=== PATIENT | male | born 1955 | race Caucasian/White ===

== ENCOUNTER 2016-06-07 14:41 | Inpatient (IN) | payer MEDICARE ==
[~2016-06-07] VITALS: Ht 180.3 cm; Wt 71.0 kg
[2016-06-07 14:43] VITALS: BP 147/84; PULSE 110; RESP 20; TEMP 98.1; O2SAT 100
[2016-06-07 14:52] VITALS: O2SAT 98
[2016-06-07] MEDS ORDERED: SODIUM CHLOR 0.9% 1000 ML INJ 1,000 ML IV SCH ×2 (14:57→16:28)
[2016-06-07] MEDS ORDERED: MORPHINE SULFATE 4 MG/ML INJ IV PUSH ONE ×2 (15:00→19:15)
[2016-06-07] MEDS ORDERED: ASPIRIN 325 MG TAB PO ONE (15:00)
[2016-06-07] MEDS ORDERED: ABAC300T PO (15:04)
[2016-06-07] MEDS ORDERED: LAMI1TAB6 PO (15:04)
[2016-06-07] MEDS ORDERED: DOLU1TAB PO (15:04)
[2016-06-07] MEDS ORDERED: ATOR20TA15 PO (15:04)
--- NOTE | 2016-06-07 15:10 | RADRPT ---
EXAM DATE/TIME: 06/07/2016 15:02 [facility] COMPARISON: No previous studies available for comparison. INDICATIONS : Chest pain that started last night. MEDICAL HISTORY : Hypercholesterolemia. Deep venous thrombosis. SURGICAL HISTORY : None. ENCOUNTER: Initial ACUITY: 2 days PAIN SCORE: 10/10 LOCATION: Bilateral chest FINDINGS: A single view of the chest demonstrates the lungs to be symmetrically aerated with a patchy alveolar density in the right medial base obscuring the right heart border consistent with right middle lobe p rocess CONCLUSION: Right middle lobe patchy alveolar airspace disease obscuring the right heart border. Most likely repr esents infiltrate. Followup chest x-ray after appropriate medical treatment is recommended Alexis Moreno MD on June 07, 2016 at 15:07 Board Certified Radiologist. This report was verified electronically.
[2016-06-07 15:30] LABS: AUTOMATED NEUTROPHIL # 15.8 TH/MM3 (1.8-7.7); BASOPHIL # 0.1 TH/MM3 (0-0.2); BASOPHIL % 0.4 % (0.0-2.0); EOSINOPHIL % 0.1 % (0.0-4.0); HEMATOCRIT 33.1 % (39.0-51.0); HEMO FLAGS AUTO DIFF; MEAN CELL VOLUME 88.2 FL (80.0-100.0); MEAN CORPUSCULAR HEMOGLOBIN 30.7 PG (27.0-34.0); MEAN CORPUSCULAR HGB CONC 34.8 % (32.0-36.0); MONO % 11.5 % (0.0-8.0); PLATELET COUNT 534 TH/MM3 (150-450); RED BLOOD COUNT 3.75 MIL/MM3 (4.50-5.90); RED CELL DISTRIBUTION WIDTH 14.8 % (11.6-17.2); WHITE BLOOD COUNT 21.4 TH/MM3 (4.0-11.0)
[2016-06-07 15:58] LABS: APTT (PATIENT) 27.4 SEC (24.3-30.1); PROTHROMBIN TIME - PATIENT 11.4 SEC (9.8-11.6)
[2016-06-07 15:59] LABS: KERATOCYTES OCC (NORMAL); PLATELET ESTIMATE SMEAR HIGH (NORMAL); PLATELET MORPHOLOGY NORMAL (NORMAL); SCAN/DIFF AUTO DIFF CONFIRMED
[2016-06-07 16:16] LABS: ANION GAP 10 MEQ/L (5-15); BICARBONATE 23.2 MEQ/L (21.0-32.0); BLOOD UREA NITROGEN 21 MG/DL (7-18); CHLORIDE 99 MEQ/L (98-107); CREATINE KINASE 196 U/L (39-308); GLOMERULAR FILTRATION RATE 26 ML/MIN (>89); MAGNESIUM 2.4 MG/DL (1.5-2.5); SODIUM (NA) 132 MEQ/L (136-145)
[2016-06-07 16:17] LABS: POTASSIUM 5.7 MEQ/L (3.5-5.1)
[2016-06-07 16:29] LABS: CKMB LESS THAN 0.5 NG/ML (0.5-3.6)
[2016-06-07] MEDS ORDERED: LEVOFLOXACIN 500 MG PREMIX INJ 100 ML IV ONE (16:30)
--- NOTE | 2016-06-07 16:59 | PD ---
HPI Chief Complaint: Chest Pain Time Seen by Provider: 16:53 Travel History International Travel<30 days: No Contact w/Intl Traveler<30days: No Traveled to known affect area: No History of Present Illness HPI 60-year-old male that presents to the ED for evaluation of right-sided chest pain to his having for the past 2 hours. Per patient he also feels nausea. Per patient the pain is severe and is 8 out of 10. He is never had anything like this before. He denies any history of heart disease. He does have a history of HIV and takes medications for it but his medications had to be changed recently by his doctor because he was going into kidney failure and they 're thinking about possibly doing dialysis at some point. Per patient he does not know his CD4 count or his viral load at this time. He actually doesn't remember it. Per patient he is compliant with his HIV medications. Per patient he has no fevers chills or sweats. Per patient the pain is like a pressure. Gets worse with deep breaths as well as with cough. Patient feels somewhat short of breath but more with exertion. Per patient feels nausea but no vomiting. Denies any bowel movement or urinary issues. Allergy to penicillin. Pain does not radiate. Nothing makes the pain better. PFSH Past Medical History Cardiovascular Problems: Yes High Cholesterol: Yes Deep Vein Thrombosis: Yes Tetanus Vaccination: Unknown Influenza Vaccination: No Social History Alcohol Use: No Tobacco Use: No Substance Use: No Allergies-Medications (Allergen,Severity, Reaction): Coded Allergies: Penicillin (Verified Allergy, Severe, 06/07/16) Reported Meds & Prescriptions Reported Meds & Active Scripts Active Reported Atorvastatin (Atorvastatin Calcium) 20 Mg Tab 20 Mg PO DAILY Lamivudine (Lamivudine (Hbv)) 100 Mg Tab 100 Mg PO DAILY Abacavir (Abacavir Sulfate) 300 Mg Tab 300 Mg PO BID Hazardous agent; use appropriate precautions for handling & disposal. Tivicay (Dolutegravir Sodium) 50 Mg Tab 50 Mg PO BID Review of Systems General / Constitutional: No: Fever, Chills, Weight Gain, Weight Loss, Other Eyes: No: Diploplia, Blurred Vision, Photophobia, Drainage, Redness, Foreign Body Sensation, Pain, Tearing, Blind Spots, Visual changes, Blindness, Other HENT: No: Headaches, Vertigo, Lightheadedness, Sore Throat, Rhinitis, Rhinorrhea, Congestion, Nosebleed, Neck Stiffness, Neck Pain, Masses, Gingival Bleeding, Dental Difficulties, Ear Discharge, Earache, Other Cardiovascular: Positive: Chest Pain or Discomfort, No: Palpitations, Irregular Rhythm, Tachycardia, Diaphoresis, Syncope, Dyspnea on exertion, Varicosities, Edema, Cyanosis, Varicosities, Phlebitis, Claudication, Other Respiratory: Positive: Shortness of Breath, Pleuritic Pain, No: Cough, Wheezing, Sneezing, Orthopnea, Hemoptysis, Stridor, Night Sweats, Other Gastrointestinal: No: Nausea, Vomiting, Diarrhea, Abdominal Pain, Hematemesis, Hematochezia, Constipation, Changes in Bowel Habits, Indigestion, Dysphagia, Loss of Appetite, Other Genitourinary: No: Urgency, Frequency, Dysuria, Nocturia, Hematuria, Decreased Urinary Output, Oliguria, Hesitancy, Dribbling, Incontinence, Pelvic Pain, Flank Pain, Dyspareunia, Discharge, Dysmenorrhea, Menorrhagia, Metorrhagia, Vaginal Bleeding, Other Musculoskeletal: No: Myalgias, Arthralgias, Limited ROM, Weakness, Cramping, Edema, Pain, Atrophy, Other Skin: No Rash, No Itching, No Dryness, No Lumps, No Hives, No Change in Pigmentation, No Change in nails, No Alopecia, No Lesions, No Breast Lumps, No Breast Tenderness, No Breast Swelling, No Other Neurologic: No: Weakness, Dizziness, Syncope, Focal Abnormalities, Coordination Problem, Tremor, Ataxia, Headache, Change in Mentation, Slurred Speech, Paresthesia, Incontinence, Seizures, Sensory Disturbance, Other Psychiatric: No: Anxiety, Depression, Suicidal Ideations, Disorder of Thought, Mood Disorder, Substance Abuse, Homicidal Ideation, Other Endocrine: No: Heat Intolerance, Cold Intolerance, Polyuria, Polydipsia, Other Hematologic/Lymphatic: No: Easy Bruising, Lymph Node Enlargement, Other Physical Exam Narrative GENERAL: SKIN: Warm and dry. HEAD: Atraumatic. Normocephalic. EYES: Pupils equal and round. No scleral icterus. No injection or drainage. ENT: No nasal bleeding or discharge. Mucous membranes pink and moist. NECK: Trachea midline. No JVD. CARDIOVASCULAR: Regular rate and rhythm. Patient has reproducible chest pain on the right side with touch. No murmurs, S3, S4. RESPIRATORY: No accessory muscle use. Clear to auscultation. Breath sounds equal bilaterally. GASTROINTESTINAL: Abdomen soft, non-tender, nondistended. Hepatic and splenic margins not palpable. MUSCULOSKELETAL: Extremities without clubbing, cyanosis, or edema. No obvious deformities. Full range of motion of the upper and lower extremities bilaterally. 2+ pulses bilaterally. NEUROLOGICAL: Awake and alert. No obvious cranial nerve deficits. Motor grossly within normal limits. Five out of 5 muscle strength in the arms and legs. Normal speech. PSYCHIATRIC: Appropriate mood and affect; insight and judgment normal. Data Data Last Documented VS Vital Signs Date Time Temp Pulse Resp B/P Pulse Ox O2 Delivery O2 Flow Rate FiO2 06/07/16 19:44 84 16 154/78 96 Room Air 06/07/16 14:43 98.1 Orders Electrocardiogram (06/07/16 14:51) Basic Metabolic Panel (Bmp) (06/07/16 14:51) Ckmb (Isoenzyme) Profile (06/07/16 14:51) Complete Blood Count With Diff (06/07/16 14:51) Magnesium (Mg) (06/07/16 14:51) Prothrombin Time / Inr (Pt) (06/07/16 14:51) Act Partial Throm Time (Ptt) (06/07/16 14:51) Troponin I (06/07/16 14:51) Chest, Single Ap (06/07/16 14:51) Ecg Monitoring (06/07/16 14:51) Bilateral Bp Monitoring (06/07/16 14:51) Iv Access Insert/Monitor (06/07/16 14:51) Oximetry (06/07/16 14:51) Oxygen Administration (06/07/16 14:51) Morphine Inj (Morphine Inj) (06/07/16 15:00) Sodium Chlor 0.9% 1000 Ml Inj (Ns 1000 M (06/07/16 14:57) Aspirin (Aspirin) (06/07/16 15:00) Blood Culture (06/07/16 15:25) D-Dimer (06/07/16 14:51) Lactic Acid Sepsis Protocol (06/07/16 15:39) Lymphocyte Profile Cd4 Cd8 (06/07/16 15:41) CKMB (06/07/16 15:10) CKMB% (06/07/16 15:10) Ventilation & Perfusion Scan (06/07/16 ) Levofloxacin 500 Mg Premix Inj (Levaquin (06/07/16 16:30) Sodium Chlor 0.9% 1000 Ml Inj (Ns 1000 M (06/07/16 16:28) Vancomycin Inj (Vancomycin Inj) (06/07/16 17:00) Morphine Inj (Morphine Inj) (06/07/16 19:15) Ondansetron Inj (Zofran Inj) (06/07/16 19:15) Admit Order (Ed Use Only) (06/07/16 19:32) Ldh Serum (06/07/16 19:32) Arterial Blood Gas (Abg) (06/07/16 ) Labs Laboratory Tests Test 06/07/16 06/07/16 15:10 16:15 White Blood Count 21.4 TH/MM3 Red Blood Count 3.75 MIL/MM3 Hemoglobin 11.5 GM/DL Hematocrit 33.1 % Mean Corpuscular Volume 88.2 FL Mean Corpuscular Hemoglobin 30.7 PG Mean Corpuscular Hemoglobin 34.8 % Concent Red Cell Distribution Width 14.8 % Platelet Count 534 TH/MM3 Mean Platelet Volume 9.6 FL Neutrophils (%) (Auto) 74.0 % Lymphocytes (%) (Auto) 14.0 % Monocytes (%) (Auto) 11.5 % Eosinophils (%) (Auto) 0.1 % Basophils (%) (Auto) 0.4 % Neutrophils # (Auto) 15.8 TH/MM3 Lymphocytes # (Auto) 3.0 TH/MM3 Monocytes # (Auto) 2.5 TH/MM3 Eosinophils # (Auto) 0.0 TH/MM3 Basophils # (Auto) 0.1 TH/MM3 CBC Comment AUTO DIFF Differential Comment AUTO DIFF CONFIRMED Platelet Estimate HIGH Platelet Morphology Comment NORMAL Keratocytes OCC Prothrombin Time 11.4 SEC Prothromb Time International 1.0 RATIO Ratio Activated Partial 27.4 SEC Thromboplast Time D-Dimer Quantitative (PE/DVT) 2.43 MG/L FEU Sodium Level 132 MEQ/L Potassium Level 5.7 MEQ/L Chloride Level 99 MEQ/L Carbon Dioxide Level 23.2 MEQ/L Anion Gap 10 MEQ/L Blood Urea Nitrogen 21 MG/DL Creatinine 2.56 MG/DL Estimat Glomerular Filtration 26 ML/MIN Rate Random Glucose 110 MG/DL Calcium Level 9.5 MG/DL Magnesium Level 2.4 MG/DL Total Creatine Kinase 196 U/L Creatine Kinase MB LESS THAN 0.5 NG/ML Troponin I LESS THAN 0.02 NG/ML Lactic Acid Level 1.4 mmol/L MDM Medical Decision Making Medical Screen Exam Complete: Yes Emergency Medical Condition: Yes Medical Record Reviewed: Yes Interpretation(s) CBC & BMP Diagram 06/07/16 15:10 Last Impressions Chest X-Ray 06/07/16 1451 Signed Impressions: Service Date/Time: Tuesday, June 07, 2016 15:02 - CONCLUSION: Right middle lobe patchy alveolar airspace disease obscuring the right heart border. Most likely represents infiltrate. Followup chest x-ray after appropriate medical treatment is recommended Alexis Moreno MD Lung Scan-[facility] Nuclear Medicine 06/07/16 0000 Signed Impressions: Service Date/Time: Tuesday, June 07, 2016 18:38 - CONCLUSION: Mildly heterogeneous ventilation and perfusion without a segmental defect. Study is low to intermediate probability for PE. Morris Lopez MD Troponin negative, CK be negative. D-dimer positive. Coags within normal limits. Lactic acid within normal limits Differential Diagnosis Pneumonia versus sepsis versus DVT versus PE versus cardiac chest pain Narrative Course 60-year-old male that presents to the ED for evaluation of right-sided chest pain. Patient was properly examined and was found to have signs and symptoms consistent with appears to be chest pain. Unclear etiology. Patient is tachycardic on exam. Patient has HIV. Concerning for significant infection as well as PE presents secondary to recent presentation. Cardiac less likely. Labs and imaging ordered. Patient is agreeable with plan. Initial labs and imaging show what appears to be likely right sided pneumonia with elevated WBCs in the 20,000s. D-dimer was also positive. Patient appears to have some kidney failure which appears to be chronic secondary to his medications. We do not have any records of his previous kidney function so have nothing to compare. Patient was given IV fluids at this time. Patient was started on Levaquin as he is allergic to penicillin to cover for sepsis. Lactic acid and blood cultures were ordered. VQ scan was ordered as patient cannot tolerate pulmonary angiogram. Case was discussed in my attending Dr. Lord who agrees with plan. Levaquin was canceled per my attendings recommendations and patient was given vancomycin instead secondary to his allergies and his bad kidney function. CT scan was negative. Patient was told results. Patient agrees to plan for admission. Case was discussed with Dr. Herbert who agrees to admission. Procedures EKG Prior to Arrival: No Sepsis Criteria SIRS Criteria (2 or more): Heart rate over 90, WBC > 21636, < 4000 or > 10% bands Sepsis Criteria (SIRS+source): Infect source susp/known Criteria Outcome: Meets sepsis criteria Diagnosis Primary Impression: Pneumonia Qualified Code: J18.1 - Pneumonia of right middle lobe due to infectious organism Additional Impressions: Sepsis Qualified Code: A41.9 - Sepsis, due to unspecified organism HIV (human immunodeficiency virus infection) Admitting Information Admitting Physician Requests: Admit Karri Elkins Jun 07, 2016 16:58
[2016-06-07] MEDS ORDERED: VANCOMYCIN INJ 1,000 MG in SODIUM CHLOR 0.9% 250 ML INJ 250 ML IV ONE (17:00)
[2016-06-07] MEDS ORDERED: ONDANSETRON HCL 4 MG/2 ML VIAL IV PUSH ONE (19:15)
--- NOTE | 2016-06-07 19:18 | RADRPT ---
EXAM DATE/TIME: 06/07/2016 18:38 [facility] COMPARISON: CHEST SINGLE AP, June 07, 2016, 15:02. INDICATIONS : Right chest pain with nausea. DOSE: 8.7 mCi Tc99m MAA IV 0.9 mCi Tc99m DTPA aerosol MEDICAL HISTORY : Deep venous thrombosis. Hypercholesterolemia. HIV. SURGICAL HISTORY : Right leg. ENCOUNTER: Initial ACUITY: 1 day PAIN SCALE: 8/10 LOCATION: Right chest TECHNIQUE: Following five minutes of tidal breathing of DTPA aerosol, planar images of the lungs were performed in eight projections. The patient was then injected with MAA, and eight-view perfusion scan was perf ormed. FINDINGS: Comparison radiograph shows patchy airspace disease, especially right middle lobe. No effusion or pne umothorax. There is mildly heterogeneous perfusion matched to ventilation. No segmental defects are d emonstrated. CONCLUSION: Mildly heterogeneous ventilation and perfusion without a segmental defect. Study is low to intermedia te probability for PE. Morris Lopez MD on June 07, 2016 at 19:15 Board Certified Radiologist. This report was verified electronically.
[2016-06-07 19:44] VITALS: BP 154/78; PULSE 84; RESP 16; O2SAT 96
[2016-06-07 20:00] VITALS: BP_SYST 122; BP_SYST 123; BP_DIAS 77; BP_DIAS 97; PULSE 65; PULSE 88; RESP 18; TEMP 97.3; TEMP 98.2; O2SAT 93; O2SAT 97
[2016-06-07] MEDS ORDERED: NALOXONE HCL 0.4 MG/ML AMP IV PRN (20:15)
[2016-06-07] MEDS ORDERED: SODIUM CHLORIDE 0.9% FLUSH 5 ML FLUSH FLUSH PRN (20:15)
[2016-06-07 20:17] LABS: BLOOD GAS BASE EXCESS -6.1 mmol/L (-2-2); BLOOD GAS CARBOXYHEMOGLOBIN 2.1 % (0-4); BLOOD GAS HCO3 18 mmol/L (22-26); BLOOD GAS O2 HGB SATURATION 91 % (90-100); BLOOD GAS OXYGEN CONTENT 12.5 Vol % (12.0-20.0); BLOOD GAS PCO2 29 mmHg (38-42); BLOOD GAS PO2 67 mmHG (61-120); BLOOD GAS TOTAL HGB 9.7 G/DL (12.0-16.0); CRITICAL VALUE NO; DRAW SITE RT RADIAL; FIO2 21 %; TEMP CORR TO 98.6
[2016-06-07 20:18] LABS: NUMBER OF ARTERIAL PUNCTURES 2; STAT YES; ULNAR PULSE PRESENT
[2016-06-07 20:19] VITALS: O2SAT 93
[2016-06-07] MEDS: SODIUM CHLORIDE 0.9% FLUSH 5 ML FLUSH FLUSH SCH (20:50)
[2016-06-07] MEDS ORDERED: RESP: ALBUTEROL 2.5 MG/IPRATROPIUM 0.5 MG NEB (PRN) NEB (21:15)
[2016-06-07] MEDS: AZTREONAM INJ 2,000 MG in SODIUM CHLORIDE 0.9% INJ 100 ML IV SCH (21:48)
[2016-06-07] MEDS: HEPARIN SODIUM - SQ 10,000 UNITS/ML VIAL SQ SCH (21:58)
--- NOTE | 2016-06-07 23:45 | HHI.HP ---
[facility] Service [facility] Primary Care Physician Kelly Kessler MD Admission Diagnosis acute CAP, sepsis, HIV Diagnoses: (1) Pneumonia (2) HIV (human immunodeficiency virus infection) (3) Leukocytosis (4) Hyperkalemia (5) Hyponatremia (6) Chronic renal failure Chief Complaint: chest pain Travel History International Travel<30 Days: No Contact w/Intl Traveler <30 Da: No Traveled to Known Affected Are: No History of Present Illness Mr. Munoz is a 60 year-old male with a history of HIV, hypertension, and DVT who presented to the ER on 06/07/16 with complaint of right-sided chest pain associated with nausea. The patient was found to have right middle lobe pneumonia and was admitted. The patient is seen in his hospital room where he is complaining of severe right -sided chest pain associated with nausea and shortness of breath and worsened by cough. Cough is productive with yellow phlegm and patient had chills associated with this but denies fevers. During examination today though, he has a tactile fever noted. Denies vomiting, diarrhea, dysuria, hematuria. Patient reports history of HIV, hypertension, right lower extremity DVT following right lower leg fracture, and kidney failure related to HIV medication. He reports having pneumonia when he was first diagnosed with HIV 10 -12 years ago but does not think it was PCP. Denies history of any HIV-related opportunistic infections. Denies history of diabetes mellitus, myocardial infarction, congestive heart failure, atrial fibrillation, pulmonary embolism, CVA, hepatitis, cirrhosis, seizure disorder, thyroid problems, cancer, or prostate problems. . Review of Systems Constitutional: COMPLAINS OF: Chills, DENIES: Fever Respiratory: COMPLAINS OF: Cough, Sputum production, Shortness of breath Cardiovascular: COMPLAINS OF: Chest pain, DENIES: Syncope Gastrointestinal: COMPLAINS OF: Nausea, DENIES: Abdominal pain, Diarrhea, Vomiting Genitourinary: DENIES: Hematuria, Dysuria Neurologic: DENIES: Seizures Except as stated in HPI: all other systems reviewed are Neg Past Family Social History Past Medical History HIV Hypertension DVT - right leg following fractures to right leg 7-8 years ago; not on blood thinners; no IVC filter Chronic renal failure . Past Surgical History Right leg ORIF Facial surgery . Reported Medications Reported Meds & Active Scripts Active Reported Atorvastatin (Atorvastatin Calcium) 20 Mg Tab 20 Mg PO DAILY Lamivudine (Lamivudine (Hbv)) 100 Mg Tab 100 Mg PO DAILY Abacavir (Abacavir Sulfate) 300 Mg Tab 300 Mg PO BID Hazardous agent; use appropriate precautions for handling & disposal. Tivicay (Dolutegravir Sodium) 50 Mg Tab 50 Mg PO BID Allergies: Coded Allergies: Penicillin (Verified Allergy, Severe, 06/07/16) Active Ordered Medications Current Medications Morphine Sulfate 4 mg 4 mg ONCE ONCE IV PUSH Last administered on 06/07/16 15 :18; Start 06/07/16 at 15:00; Stop 06/07/16 at 15:01; Status DC Sodium Chloride (NS 1000 ml Inj) 1,000 ml @ 1,000 mls/hr Q1H IV Last administered on 06/07/16 15:18; Start 06/07/16 at 14:57; Stop 06/07/16 at 15:56 ; Status DC Aspirin 325 mg 325 mg ONCE ONCE PO Last administered on 06/07/16 15:18; Start 06/07/16 at 15:00; Stop 06/07/16 at 15:01; Status DC Levofloxacin/ Dextrose 100 ml @ 100 mls/hr ONCE ONCE IV ; Start 06/07/16 at 16 :30; Stop 06/07/16 at 17:01; Status DC Sodium Chloride 1,000 ml @ 1,000 mls/hr Q1H IV Last administered on 06/07/16 17:17; Start 06/07/16 at 16:28; Stop 06/07/16 at 17:27; Status DC Vancomycin HCl/ Sodium Chloride (Vancomycin Inj/ NS 250 ml Inj) 250 ml @ 250 mls/hr ONCE ONCE IV Last administered on 06/07/16 17:17; Start 06/07/16 at 17 :00; Stop 06/07/16 at 17:59; Status DC Morphine Sulfate (Morphine Inj) 4 mg ONCE ONCE IV PUSH Last administered on 19:21; Start 06/07/16 at 19:15; Stop 06/07/16 at 19:16; Status DC Ondansetron HCl (Zofran Inj) 4 mg ONCE ONCE IV PUSH Last administered on 19:21; Start 06/07/16 at 19:15; Stop 06/07/16 at 19:16; Status DC IV Flush (NS Flush) 2 ml UNSCH PRN FLUSH FLUSH AFTER USING IV ACCESS; Start at 20:15 IV Flush (NS Flush) 2 ml BID FLUSH ; Start 06/07/16 at 21:00 Naloxone HCl 0.4 mg 0.4 mg UNSCH PRN IV SEE LABEL COMMENTS; Start 06/07/16 at 20:15 Aztreonam/Sodium Chloride (Azactam Inj/NS Inj) 100 ml @ 200 mls/hr Q12H IV Last administered on 06/07/16 21:48; Start 06/07/16 at 21:00 Albuterol/ Ipratropium (Duoneb Neb) 1 ampule Q4HR NEB PRN NEB shortness of breath/wheezing; Start 06/07/16 at 21:15 Heparin Sodium (Porcine) (Heparin Inj) 5,000 units Q8HR SQ Last administered on 06/07/16 21:58; Start 06/07/16 at 22:00 Pneumococcal Polyvalent Vaccine (Pneumovax-23 Inj) 25 mcg ONCE ONCE IM ; Start 06/09/16 at 09:00; Stop 06/09/16 at 09:01 Influenza Virus Vaccine (Flu (Quadrivalent) Vaccine Inj) 0.5 ml ONCE ONCE IM ; Start 06/09/16 at 09:00; Stop 06/09/16 at 09:01 Family History Patient left home at age 15 and states his family history is unknown to him . Social History Tobacco: Smoked cigars/cigarettes for over 20 years, quit 4-5 years ago Alcohol: Denies Illicit Drugs: Denies any "heavy" drug use Physical Exam Vital Signs Vital Signs Date Time Temp Pulse Resp B/P Pulse Ox O2 Delivery O2 Flow Rate FiO2 06/07/16 20:19 93 06/07/16 19:44 84 16 154/78 96 Room Air 06/07/16 15:23 20 06/07/16 14:52 98 Room Air 06/07/16 14:52 115 22 97 Room Air 06/07/16 14:52 98 Room Air 06/07/16 14:43 98.1 110 20 147/84 100 Room Air Physical Exam GENERAL: This is a well-developed patient, in no apparent distress. SKIN: No rashes, ecchymoses or lesions. Cool and dry. HEAD: Atraumatic. Normocephalic. EYES: No scleral icterus. No injection or drainage. ENT: Nose without bleeding, purulent drainage. NECK: Trachea midline. No JVD or lymphadenopathy. CARDIOVASCULAR: Regular rate and rhythm without murmurs, gallops, or rubs. RESPIRATORY: Breath sounds equal bilaterally. No wheezes or rhonchi. Right lung with crepitations. GASTROINTESTINAL: Abdomen soft, non-tender, nondistended. No guarding. MUSCULOSKELETAL: Extremities without clubbing, cyanosis, or edema. No calf tenderness. Right anterior chest wall tender with palpation. NEUROLOGICAL: Awake and alert. Motor and sensory grossly within normal limits. Normal speech. . Laboratory Laboratory Tests Test 06/07/16 06/07/16 06/07/16 06/07/16 15:10 16:15 20:02 21:40 White Blood Count 21.4 Red Blood Count 3.75 Hemoglobin 11.5 Hematocrit 33.1 Mean Corpuscular Volume 88.2 Mean Corpuscular Hemoglobin 30.7 Mean Corpuscular Hemoglobin 34.8 Concent Red Cell Distribution Width 14.8 Platelet Count 534 Mean Platelet Volume 9.6 Neutrophils (%) (Auto) 74.0 Lymphocytes (%) (Auto) 14.0 Monocytes (%) (Auto) 11.5 Eosinophils (%) (Auto) 0.1 Basophils (%) (Auto) 0.4 Neutrophils # (Auto) 15.8 Lymphocytes # (Auto) 3.0 Monocytes # (Auto) 2.5 Eosinophils # (Auto) 0.0 Basophils # (Auto) 0.1 CBC Comment AUTO DIFF Differential Comment AUTO DIFF CONFIRMED Platelet Estimate HIGH Platelet Morphology Comment NORMAL Keratocytes OCC Prothrombin Time 11.4 Prothromb Time International 1.0 Ratio Activated Partial 27.4 Thromboplast Time D-Dimer Quantitative (PE/DVT) 2.43 Sodium Level 132 Potassium Level 5.7 3.4 Chloride Level 99 Carbon Dioxide Level 23.2 Anion Gap 10 Blood Urea Nitrogen 21 Creatinine 2.56 Estimat Glomerular Filtration 26 Rate Random Glucose 110 Calcium Level 9.5 Magnesium Level 2.4 Lactate Dehydrogenase 511 Total Creatine Kinase 196 Creatine Kinase MB LESS THAN 0.5 Troponin I LESS THAN 0.02 Lactic Acid Level 1.4 Blood Gas Puncture Site RT RADIAL Blood Gas Patient Temperature 98.6 Blood Gas HCO3 18 Blood Gas Base Excess -6.1 Blood Gas Oxygen Saturation 91 Arterial Blood pH 7.40 Arterial Blood Partial 29 Pressure CO2 Arterial Blood Partial 67 Pressure O2 Arterial Blood Oxygen Content 12.5 Arterial Blood 2.1 Carboxyhemoglobin Arterial Blood Methemoglobin 2.0 Blood Gas Hemoglobin 9.7 Blood Gas Inspired Oxygen 21 Date/Time Procedure Status Source Growth 06/07/16 16:15 Aerobic Blood Culture Received Blood Peripheral Pending 06/07/16 16:15 Anaerobic Blood Culture Received Blood Peripheral Pending Result Diagram: 06/07/16 1510 06/07/16 2140 Imaging Last Impressions Chest X-Ray 06/07/16 1451 Signed Impressions: Service Date/Time: Tuesday, June 07, 2016 15:02 - CONCLUSION: Right middle lobe patchy alveolar airspace disease obscuring the right heart border. Most likely represents infiltrate. Followup chest x-ray after appropriate medical treatment is recommended Alexis Moreno MD Lung Scan- Nuclear Medicine 06/07/16 0000 Signed Impressions: Service Date/Time: Tuesday, June 07, 2016 18:38 - CONCLUSION: Mildly heterogeneous ventilation and perfusion without a segmental defect. Study is low to intermediate probability for PE. Morris Lopez MD . Assessment and Plan Problem List: (1) HIV (human immunodeficiency virus infection) ICD Code: Z21 Status: Chronic (2) Pneumonia ICD Code: J18.9 Status: Acute (3) Leukocytosis ICD Code: D72.829 Status: Acute (4) Hyperkalemia ICD Code: E87.5 Status: Acute (5) Hyponatremia ICD Code: E87.1 Status: Acute (6) Chronic renal failure ICD Code: N18.9 Status: Chronic Assessment and Plan Mr. Munoz is a 60 year-old male with a history of HIV, hyperlipidemia, and DVT who presented to the ER on 06/07/16 with complaint of right-sided chest pain associated with nausea. His HIV medications have been changed because of renal failure. The patient was found to have right middle lobe pneumonia and was admitted. He was also found to have hyperkalemia, hyponatremia, and kidney failure. Chest Pain - suspect musculoskeletal r/t cough from pneumonia - initial cardiac enzymes negative - 12 lead EKG with sinus tachycardia- ventricular rate 105; no ischemic changes noted - personally reviewed - Morphine 2 milligrams every 3 hours when necessary for pain HIV + x 10 - 12 years; recent medication changes due to CRF - Consult infectious disease for assistance with management - LDH elevated at 511 and A-a gradient elevated at 46.5 (18.8 is normal for a patient of this age) with concern this may lead to PCP Right middle lobe pneumonia - Aztreonam 2 g IV every 6 hours - Supplemental oxygen to maintain oxygen saturation greater than 92% - Duonebulizers every 4 hours as needed for shortness of breath/wheezing - VQ scan with low to intermediate probability for PE - suspect related to increase in A-a gradient - Check sputum culture Leukocytosis with neutrophilia and monocytosis likely secondary to pneumonia - Recheck CBC in a.m. and follow results Hyperkalemia - Admission potassium 5.7; hemolyzed specimen - Potassium level rechecked is 3.4 Hyponatremia - Sodium 132 - no prior labs to compare - Patient received 2 L normal saline in the ER - Well recheck sodium in a.m., follow trends, and treat as needed Renal Disease possibly related to HIV medications - BUN elevated at 21, creatinine elevated at 2.56, and estimated GFR low at 26 - No prior labs are available for comparison - Recheck labs in a.m. and follow trends in renal indices - Avoid nephrotoxins - Renal diet - consult nephrology if needed DVT prophylaxis - Heparin 5000 units subq q8h Written by Anabel Javed, acting as scribe for Dr. Herbert on 06/07/16 at 23:55. The documentation accurately reflects the work performed [id number] by me on at 2355 Discussed Condition With ER physician, RN, and patient Physician Certification 2 Midnight Certification Type: Admission for Inpatient Services Order for Inpatient Services The services are ordered in accordance with Medicare regulations or non- Medicare payer requirements, as applicable. In the case of services not specified as inpatient-only, they are appropriately provided as inpatient services in accordance with the 2-midnight benchmark. Estimated LOS (days): 4 days is the estimated time the patient will need to remain in the hospital, assuming treatment plan goals are met and no additional complications. Post-Hospital Plan: Not yet determined Problem Qualifiers (1) Pneumonia: Qualified Code: J18.1 - Pneumonia of right middle lobe due to infectious organism Anabel Javed Jun 07, 2016 23:45 Becki Herbert MD Jun 08, 2016 08:33
[2016-06-08] VITALS (9 sets, daily range): BP systolic 103–135; BP diastolic 60–86; PULSE 56–97; RESP 16–18; TEMP 97.7–98.8; O2SAT 94–100
[2016-06-08] MEDS: MORPHINE SULFATE 4 MG/ML INJ IV PUSH PRN ×6 (01:10→23:59)
[2016-06-08] MEDS: HEPARIN SODIUM - SQ 10,000 UNITS/ML VIAL SQ SCH ×3 (06:36→21:58)
[2016-06-08 07:17] LABS: BASOPHIL # 0.1 TH/MM3 (0-0.2); BASOPHIL % 0.5 % (0.0-2.0); EOSINOPHIL # 0.3 TH/MM3 (0-0.4); HEMATOCRIT 28.9 % (39.0-51.0); LYMPH % 21.2 % (9.0-44.0); LYMPHOCYTE # 3.4 TH/MM3 (1.0-4.8); MEAN CELL VOLUME 90.6 FL (80.0-100.0); MEAN CORPUSCULAR HGB CONC 33.1 % (32.0-36.0); MONO % 14.8 % (0.0-8.0); NEUT % 61.5 % (16.0-70.0); PLATELET COUNT 371 TH/MM3 (150-450); RED BLOOD COUNT 3.19 MIL/MM3 (4.50-5.90); RED CELL DISTRIBUTION WIDTH 14.8 % (11.6-17.2); WHITE BLOOD COUNT 16.3 TH/MM3 (4.0-11.0)
[2016-06-08 07:29] LABS: HEMO FLAGS AUTO DIFF
[2016-06-08 07:34] LABS: BICARBONATE 21.5 MEQ/L (21.0-32.0); POTASSIUM 3.7 MEQ/L (3.5-5.1)
[2016-06-08 08:08] LABS: ACANTHOCYTES OCC (NORMAL); HELMET CELLS OCC (NORMAL); OVALOCYTES 1+ (NORMAL); PLATELET ESTIMATE SMEAR NORMAL (NORMAL); PLATELET MORPHOLOGY NORMAL (NORMAL); TOXIC VACUOLATION PRESENT (NONE SEEN)
[2016-06-08 08:09] LABS: SCAN/DIFF AUTO DIFF CONFIRMED
[2016-06-08] MEDS: AZTREONAM INJ 2,000 MG in SODIUM CHLORIDE 0.9% INJ 100 ML IV SCH ×2 (09:00→21:59)
[2016-06-08] MEDS: SODIUM CHLORIDE 0.9% FLUSH 5 ML FLUSH FLUSH SCH ×2 (09:00→21:59)
[2016-06-08] MEDS ORDERED: LAMIVUDINE 100 MG PO SCH (11:45)
--- NOTE | 2016-06-08 11:56 | HHI.PR ---
Subjective Remarks f/u; pneumonia afebrile. cough is better and with no sob. overall feels better today. Objective Vitals Vital Signs Date Time Temp Pulse Resp B/P Pulse Ox O2 Delivery O2 Flow Rate FiO2 06/08/16 11:21 97 Nasal Cannula 06/08/16 08:00 98.5 89 16 103/60 95 06/08/16 08:00 84 06/08/16 04:00 98.8 89 18 135/65 100 06/08/16 00:43 97 06/08/16 00:00 98.3 56 18 125/86 94 06/07/16 20:19 93 06/07/16 20:00 98.2 88 18 123/97 97 06/07/16 19:44 84 16 154/78 96 Room Air 06/07/16 15:23 20 06/07/16 14:52 98 Room Air 06/07/16 14:52 115 22 97 Room Air 06/07/16 14:52 98 Room Air 06/07/16 14:43 98.1 110 20 147/84 100 Room Air I/O 06/07/16 06/07/16 06/07/16 06/08/16 06/08/16 06/08/16 07:00 15:00 23:00 07:00 15:00 23:00 Intake Total 240 ml Balance 240 ml Intake Oral 240 ml # Voids 1 2 # Bowel Movements 0 Result Diagram: 06/08/16 0621 06/08/16 0621 Imaging Last Impressions Chest X-Ray 06/07/16 1451 Signed Impressions: Service Date/Time: Tuesday, June 07, 2016 15:02 - CONCLUSION: Right middle lobe patchy alveolar airspace disease obscuring the right heart border. Most likely represents infiltrate. Followup chest x-ray after appropriate medical treatment is recommended Alexis Moreno MD Lung Scan- Nuclear Medicine 06/07/16 0000 Signed Impressions: Service Date/Time: Tuesday, June 07, 2016 18:38 - CONCLUSION: Mildly heterogeneous ventilation and perfusion without a segmental defect. Study is low to intermediate probability for PE. Morris Lopez MD Objective Remarks GENERAL: This is a well-nourished, well-developed patient, in no apparent distress. CARDIOVASCULAR: Regular rate and regular rhythm without murmurs, gallops, or rubs. RESPIRATORY: Clear to auscultation. Breath sounds equal bilaterally. No wheezes , rales, or rhonchi. GASTROINTESTINAL: Abdomen soft, non-tender, nondistended. Normal, active bowel sounds MUSCULOSKELETAL: Extremities without clubbing, cyanosis, or edema. NEURO: Alert & Oriented x4 to person, place, time, situation. Moves all ext x4 Medications and IVs Current Medications Morphine Sulfate 4 mg 4 mg ONCE ONCE IV PUSH Last administered on 06/07/16 15 :18; Start 06/07/16 at 15:00; Stop 06/07/16 at 15:01; Status DC Sodium Chloride (NS 1000 ml Inj) 1,000 ml @ 1,000 mls/hr Q1H IV Last administered on 06/07/16 15:18; Start 06/07/16 at 14:57; Stop 06/07/16 at 15:56 ; Status DC Aspirin 325 mg 325 mg ONCE ONCE PO Last administered on 06/07/16 15:18; Start 06/07/16 at 15:00; Stop 06/07/16 at 15:01; Status DC Levofloxacin/ Dextrose 100 ml @ 100 mls/hr ONCE ONCE IV ; Start 06/07/16 at 16 :30; Stop 06/07/16 at 17:01; Status DC Sodium Chloride 1,000 ml @ 1,000 mls/hr Q1H IV Last administered on 06/07/16 17:17; Start 06/07/16 at 16:28; Stop 06/07/16 at 17:27; Status DC Vancomycin HCl/ Sodium Chloride (Vancomycin Inj/ NS 250 ml Inj) 250 ml @ 250 mls/hr ONCE ONCE IV Last administered on 06/07/16 17:17; Start 06/07/16 at 17 :00; Stop 06/07/16 at 17:59; Status DC Morphine Sulfate (Morphine Inj) 4 mg ONCE ONCE IV PUSH Last administered on 19:21; Start 06/07/16 at 19:15; Stop 06/07/16 at 19:16; Status DC Ondansetron HCl (Zofran Inj) 4 mg ONCE ONCE IV PUSH Last administered on 19:21; Start 06/07/16 at 19:15; Stop 06/07/16 at 19:16; Status DC IV Flush (NS Flush) 2 ml UNSCH PRN FLUSH FLUSH AFTER USING IV ACCESS; Start at 20:15 IV Flush (NS Flush) 2 ml BID FLUSH ; Start 06/07/16 at 21:00 Naloxone HCl 0.4 mg 0.4 mg UNSCH PRN IV SEE LABEL COMMENTS; Start 06/07/16 at 20:15 Aztreonam/Sodium Chloride (Azactam Inj/NS Inj) 100 ml @ 200 mls/hr Q12H IV Last administered on 06/08/16 09:00; Start 06/07/16 at 21:00 Albuterol/ Ipratropium (Duoneb Neb) 1 ampule Q4HR NEB PRN NEB shortness of breath/wheezing; Start 06/07/16 at 21:15 Heparin Sodium (Porcine) (Heparin Inj) 5,000 units Q8HR SQ Last administered on 06/08/16 06:36; Start 06/07/16 at 22:00 Pneumococcal Polyvalent Vaccine (Pneumovax-23 Inj) 25 mcg ONCE ONCE IM ; Start 06/09/16 at 09:00; Stop 06/09/16 at 09:01 Influenza Virus Vaccine (Flu (Quadrivalent) Vaccine Inj) 0.5 ml ONCE ONCE IM ; Start 06/09/16 at 09:00; Stop 06/09/16 at 09:01 Morphine Sulfate (Morphine Inj) 2 mg Q3H PRN IV PUSH pain >5 Last administered on 06/08/16t 10:03; Start 06/08/16 at 00:30 A/P Assessment and Plan A/P Chest Pain - suspect musculoskeletal r/t cough from pneumonia - initial cardiac enzymes negative - EKG with no ischemic changes noted - - continue pain control HIV + x 10 - 12 years -CD4 count pending - Consulted infectious disease for assistance with management Right middle lobe pneumonia - continue IV antibiotic - Supplemental oxygen to maintain oxygen saturation greater than 92% - neb treatment as needed - VQ scan with low to intermediate probability for PE - - Check sputum culture Leukocytosis with neutrophilia and monocytosis likely secondary to pneumonia - improving. - Recheck CBC in a.m. and follow results Hyperkalemia -resolved - Admission potassium 5.7; hemolyzed specimen Hyponatremia -resolved chronic renal insufficiency possibly related to HIV medications - No prior labs are available for comparison - Recheck labs in a.m. and follow trends in renal indices - Avoid nephrotoxins - Renal diet - consult nephrology if needed anemia of chronic disease- will monitor periodically DVT prophylaxis with subq heparin Kusum Sanders MD Jun 08, 2016 11:56
--- NOTE | 2016-06-08 13:33 | PD.ID.CON ---
History of Present Illness Service ID Consult Requested By Reason for Consult Evaluation and Mment of Pneumonia in a patient with HIV. Primary Care Physician Kelly Kessler MD Diagnoses: History of Present Illness Mr. Munoz is a 60 year-old male with a history of HIV, hypertension, and DVT who presented to the ER on 06/07/16 with complaint of right-sided chest pain associated with nausea. The patient was found to have right middle lobe pneumonia and was admitted.Patient reports he moved back from [place] few months back in late Mar 2016. His regimen was just changed by recently. He does not know his CD4 or Viral load. He is not on Bactrim or Azitho based on his meds he provided. Patient is a poor historian and not reliable. His cough is productive with yellow phlegm and patient had chills associated with this but denies fevers. Denies vomiting, diarrhea, dysuria, hematuria. He reports having pneumonia when he was first diagnosed with HIV 10-12 years ago but does not think it was PCP. Denies history of any HIV-related opportunistic infections. ID consulted for evaluation and Mment of pneumonia in a patient with HIV. Review of Systems ROS Limitations: Poor Historian Constitutional: COMPLAINS OF: Fever, Chills, DENIES: Diaphoretic episodes, Fatigue, Weight gain, Weight loss, Dizziness, Change in appetite, Night Sweats Endocrine: DENIES: Heat/cold intolerance, Polydipsia, Polyuria, Polyphagia Eyes: DENIES: Blurred vision, Diplopia, Eye inflammation, Eye pain, Vision loss , Photosensitivity, Double Vision Ears, nose, mouth, throat: DENIES: Tinnitus, Hearing loss, Vertigo, Nasal discharge, Oral lesions, Throat pain, Hoarseness, Ear Pain, Running Nose, Epistaxis, Sinus Pain, Toothache, Odynophagia Respiratory: COMPLAINS OF: Cough, Sputum production, Shortness of breath, DENIES: Apneas, Snoring, Wheezing, Hemoptysis Cardiovascular: COMPLAINS OF: Chest pain, DENIES: Palpitations, Syncope, Dyspnea on Exertion, PND, Lower Extremity Edema, Orthopnea, Claudication Gastrointestinal: DENIES: Abdominal pain, Black stools, Bloody stools, Constipation, Diarrhea, Nausea, Vomiting, Difficulty Swallowing, Anorexia Genitourinary: DENIES: Sexual dysfunction, Urinary frequency, Urinary incontinence, Urgency, Hematuria, Dysuria, Nocturia, Penile Discharge, Testicular Pain, Testicular Swelling Except as stated in HPI: all other systems reviewed are Neg Past Family Social History Allergies: Coded Allergies: Penicillin (Verified Allergy, Severe, 06/07/16) Past Medical History HIV Hypertension DVT - right leg following fractures to right leg 7-8 years ago; not on blood thinners; no IVC filter Chronic renal failure Past Surgical History Right leg ORIF Facial surgery Reported Medications Reported Meds & Active Scripts Active Reported Atorvastatin (Atorvastatin Calcium) 20 Mg Tab 20 Mg PO DAILY Lamivudine (Lamivudine (Hbv)) 100 Mg Tab 100 Mg PO DAILY Abacavir (Abacavir Sulfate) 300 Mg Tab 300 Mg PO BID Hazardous agent; use appropriate precautions for handling & disposal. Tivicay (Dolutegravir Sodium) 50 Mg Tab 50 Mg PO BID Active Ordered Medications Current Medications Medications (Trade) Dose Ordered Sig/Von Route Start Time Stop Time Status Last Admin (NS Flush) 2 ml UNSCH PRN FLUSH 06/07/16 20:15 (NS Flush) 2 ml BID FLUSH 06/07/16 21:00 06/08/16 09:00 Naloxone HCl 0.4 mg 0.4 mg UNSCH PRN IV 06/07/16 20:15 (Azactam Inj/NS Inj) 100 ml @ 200 mls/hr Q12H IV 06/07/16 21:00 06/08/16 09:00 (Heparin Inj) 5,000 units Q8HR SQ 06/07/16 22:00 06/08/16 15:39 (Pneumovax-23 Inj) 25 mcg ONCE ONCE IM 06/09/16 09:00 06/09/16 09:01 (Flu (Quadrivalent) Vaccine Inj) 0.5 ml ONCE ONCE IM 06/09/16 09:00 06/09/16 09:01 (Morphine Inj) 2 mg Q3H PRN IV PUSH 06/08/16 00:30 06/08/16 19:52 (Ziagen) 300 mg BID PO 06/08/16 21:00 (Lipitor) 20 mg DAILY PO 06/09/16 09:00 (Epivir Liq) 100 mg DAILY PO 06/09/16 09:00 (Levaquin) 500 mg Q48H PO 06/08/16 14:00 06/08/16 15:39 Family History reviewed pt not aware he left home early in life. Social History Smokes 1-2 ppd, reports he quit. No alcohol ? Drugs milder not specific. No family No assigned POA. Says "my dog is my POA". Physical Exam Vital Signs Vital Signs Date Time Temp Pulse Resp B/P Pulse Ox O2 Delivery O2 Flow Rate FiO2 06/08/16 11:21 97 Nasal Cannula 06/08/16 08:00 98.5 89 16 103/60 95 06/08/16 08:00 84 06/08/16 04:00 98.8 89 18 135/65 100 06/08/16 00:43 97 06/08/16 00:00 98.3 56 18 125/86 94 06/07/16 20:19 93 06/07/16 20:00 98.2 88 18 123/97 97 06/07/16 19:44 84 16 154/78 96 Room Air 06/07/16 15:23 20 06/07/16 14:52 98 Room Air 06/07/16 14:52 115 22 97 Room Air 06/07/16 14:52 98 Room Air 06/07/16 14:43 98.1 110 20 147/84 100 Room Air Physical Exam GENERAL: This is a well-nourished, well-developed patient, in no apparent distress. SKIN: No rashes, ecchymoses or lesions. Cool and dry. HEAD: Atraumatic. Normocephalic. No temporal or scalp tenderness. EYES: Pupils equal round and reactive. Extraocular motions intact. No scleral icterus. No injection or drainage. ENT: Nose without bleeding, purulent drainage or septal hematoma. Throat without erythema, tonsillar hypertrophy or exudate. Uvula midline. Airway patent. NECK: Trachea midline. Supple, nontender, no meningeal signs. CARDIOVASCULAR: HS audible. No murmur RESPIRATORY: Clear to auscultation. Breath sounds equal bilaterally but decreased in bases. GASTROINTESTINAL: Abdomen soft, non-tender, nondistended. MUSCULOSKELETAL: Extremities without clubbing, cyanosis, or edema. No joint tenderness, effusion, or edema noted. No calf tenderness. Negative Homans sign bilaterally. NEUROLOGICAL: Awake and alert. Cranial nerves II through XII intact. Motor and sensory grossly within normal limits. Five out of 5 muscle strength in all muscle groups. Normal speech. Psych: cooperative IV line sites with no e/o infection Laboratory Laboratory Tests Test 06/07/16 06/07/16 06/07/16 06/07/16 15:10 16:15 20:02 21:40 White Blood Count 21.4 Red Blood Count 3.75 Hemoglobin 11.5 Hematocrit 33.1 Mean Corpuscular Volume 88.2 Mean Corpuscular Hemoglobin 30.7 Mean Corpuscular Hemoglobin 34.8 Concent Red Cell Distribution Width 14.8 Platelet Count 534 Mean Platelet Volume 9.6 Neutrophils (%) (Auto) 74.0 Lymphocytes (%) (Auto) 14.0 Monocytes (%) (Auto) 11.5 Eosinophils (%) (Auto) 0.1 Basophils (%) (Auto) 0.4 Neutrophils # (Auto) 15.8 Lymphocytes # (Auto) 3.0 Monocytes # (Auto) 2.5 Eosinophils # (Auto) 0.0 Basophils # (Auto) 0.1 CBC Comment AUTO DIFF Differential Comment AUTO DIFF CONFIRMED Platelet Estimate HIGH Platelet Morphology Comment NORMAL Keratocytes OCC Prothrombin Time 11.4 Prothromb Time International 1.0 Ratio Activated Partial 27.4 Thromboplast Time D-Dimer Quantitative (PE/DVT) 2.43 Sodium Level 132 Potassium Level 5.7 3.4 Chloride Level 99 Carbon Dioxide Level 23.2 Anion Gap 10 Blood Urea Nitrogen 21 Creatinine 2.56 Estimat Glomerular Filtration 26 Rate Random Glucose 110 Calcium Level 9.5 Magnesium Level 2.4 Lactate Dehydrogenase 511 Total Creatine Kinase 196 Creatine Kinase MB LESS THAN 0.5 Troponin I LESS THAN 0.02 Lactic Acid Level 1.4 Blood Gas Puncture Site RT RADIAL Blood Gas Patient Temperature 98.6 Blood Gas HCO3 18 Blood Gas Base Excess -6.1 Blood Gas Oxygen Saturation 91 Arterial Blood pH 7.40 Arterial Blood Partial 29 Pressure CO2 Arterial Blood Partial 67 Pressure O2 Arterial Blood Oxygen Content 12.5 Arterial Blood 2.1 Carboxyhemoglobin Arterial Blood Methemoglobin 2.0 Blood Gas Hemoglobin 9.7 Blood Gas Inspired Oxygen 21 Test 06/08/16 06:21 White Blood Count 16.3 Red Blood Count 3.19 Hemoglobin 9.6 Hematocrit 28.9 Mean Corpuscular Volume 90.6 Mean Corpuscular Hemoglobin 30.0 Mean Corpuscular Hemoglobin 33.1 Concent Red Cell Distribution Width 14.8 Platelet Count 371 Mean Platelet Volume 9.0 Neutrophils (%) (Auto) 61.5 Lymphocytes (%) (Auto) 21.2 Monocytes (%) (Auto) 14.8 Eosinophils (%) (Auto) 2.0 Basophils (%) (Auto) 0.5 Neutrophils # (Auto) 10.0 Lymphocytes # (Auto) 3.4 Monocytes # (Auto) 2.4 Eosinophils # (Auto) 0.3 Basophils # (Auto) 0.1 CBC Comment AUTO DIFF Differential Comment AUTO DIFF CONFIRMED Toxic Vacuolation PRESENT Platelet Estimate NORMAL Platelet Morphology Comment NORMAL Ovalocytes 1+ Helmet Cells OCC Acanthocytes OCC Sodium Level 138 Potassium Level 3.7 Chloride Level 107 Carbon Dioxide Level 21.5 Anion Gap 10 Blood Urea Nitrogen 17 Creatinine 2.18 Estimat Glomerular Filtration 31 Rate Random Glucose 96 Calcium Level 8.5 Date/Time Procedure Status Source Growth 06/08/16 00:30 Gram Stain - Final Resulted Sputum Expectorated Sputum 06/08/16 00:30 Sputum Culture Resulted Sputum Expectorated Sputum Pending 06/07/16 16:15 Aerobic Blood Culture - Preliminary Resulted Blood Peripheral NO GROWTH IN 1 DAY 06/07/16 16:15 Anaerobic Blood Culture - Preliminary Resulted Blood Peripheral NO GROWTH IN 1 DAY Result Diagram: 06/08/16 0621 06/08/16 0621 Imaging Last Impressions Chest X-Ray 06/07/16 1451 Signed Impressions: Service Date/Time: Tuesday, June 07, 2016 15:02 - CONCLUSION: Right middle lobe patchy alveolar airspace disease obscuring the right heart border. Most likely represents infiltrate. Followup chest x-ray after appropriate medical treatment is recommended Alexis Moreno MD Lung Scan- Nuclear Medicine 06/07/16 0000 Signed Impressions: Service Date/Time: Tuesday, June 07, 2016 18:38 - CONCLUSION: Mildly heterogeneous ventilation and perfusion without a segmental defect. Study is low to intermediate probability for PE. Morris Lopez MD Assessment and Plan Assessment and Plan Pneumonia likely CAP or atypical. Not PCP per history or radiologically. HIV not on HAART ? 1 month. CKD ? HAART related. Recs: Recommend getting records from to see HAART regimen he is last on and compliance. If any doubts about compliance better to hold off on HAART. Continue Azactam IV Start Levaquin for atypicals. Follow cultures Follow clinically. Linnette Powell MD Jun 08, 2016 13:33
[2016-06-08] MEDS: LEVOFLOXACIN 500 MG TAB PO SCH (15:39)
--- NOTE | 2016-06-08 16:35 | EKG ---
Date Performed: 06/07/2016 Time Performed: 14:57:54 PTAGE: 60 years EKG: SINUS TACHYCARDIA ABNORMAL RHYTHM ECG NO PREVIOUS TRACING DOCTOR: Aftab Soto Interpretating Date/Time 06/08/2016 16:33:43
[2016-06-08] MEDS ORDERED: Custom Consult Pharmacy 1 EA OTHER SCH (20:30)
[2016-06-08] MEDS: DOLUTEGRAVIR SODIUM 50 MG TAB PO SCH (21:57)
[2016-06-08] MEDS: ABACAVIR SULFATE 300 MG TAB PO SCH (21:57)
[2016-06-09] VITALS (8 sets, daily range): BP systolic 101–124; BP diastolic 63–76; PULSE 71–85; RESP 16–20; TEMP 97–98.5; O2SAT 93–96
[2016-06-09] MEDS: HEPARIN SODIUM - SQ 10,000 UNITS/ML VIAL SQ SCH ×3 (04:53→22:14)
[2016-06-09] MEDS: MORPHINE SULFATE 4 MG/ML INJ IV PUSH PRN ×4 (04:53→20:13)
[2016-06-09 08:12] LABS: AUTOMATED NEUTROPHIL # 6.8 TH/MM3 (1.8-7.7); BASOPHIL # 0.1 TH/MM3 (0-0.2); BASOPHIL % 0.9 % (0.0-2.0); EOSINOPHIL % 7.7 % (0.0-4.0); HEMATOCRIT 29.8 % (39.0-51.0); HEMO FLAGS DIFF FINAL; LYMPH % 28.5 % (9.0-44.0); LYMPHOCYTE # 3.8 TH/MM3 (1.0-4.8); MEAN CELL VOLUME 89.5 FL (80.0-100.0); MEAN CORPUSCULAR HEMOGLOBIN 29.9 PG (27.0-34.0); MEAN CORPUSCULAR HGB CONC 33.4 % (32.0-36.0); MONO % 12.1 % (0.0-8.0); NEUT % 50.8 % (16.0-70.0); PLATELET COUNT 453 TH/MM3 (150-450); RED BLOOD COUNT 3.33 MIL/MM3 (4.50-5.90); RED CELL DISTRIBUTION WIDTH 14.4 % (11.6-17.2); WHITE BLOOD COUNT 13.3 TH/MM3 (4.0-11.0)
[2016-06-09] MEDS: ABACAVIR SULFATE 300 MG TAB PO SCH ×2 (08:50→20:11)
[2016-06-09] MEDS: DOLUTEGRAVIR SODIUM 50 MG TAB PO SCH ×2 (08:50→20:13)
[2016-06-09] MEDS: ATORVASTATIN 20 MG TAB PO SCH (08:51)
[2016-06-09 08:53] LABS: BICARBONATE 23.3 MEQ/L (21.0-32.0)
[2016-06-09] MEDS: AZTREONAM INJ 2,000 MG in SODIUM CHLORIDE 0.9% INJ 100 ML IV SCH (08:53)
[2016-06-09] MEDS: SODIUM CHLORIDE 0.9% FLUSH 5 ML FLUSH FLUSH SCH ×2 (09:00→20:14)
[2016-06-09] MEDS ORDERED: PNEUMOCOCCAL POLYVALENT INJ 25 MCG/0.5 ML SYR IM ONE (09:00)
[2016-06-09] MEDS ORDERED: INFLUENZA VIRUS VACCINE (QUADRIVALENT) 0.5 ML SYR IM ONE (09:00)
[2016-06-09] MEDS: lamiVUDine SOLN 150 MG/15 ML CUP PO SCH (09:00)
[2016-06-09 09:05] LABS: POTASSIUM 4.1 MEQ/L (3.5-5.1)
--- NOTE | 2016-06-09 09:46 | RADRPT ---
EXAM DATE/TIME: 06/09/2016 09:31 [facility] COMPARISON: CHEST SINGLE AP, June 07, 2016, 15:02. INDICATIONS : Short of breath. MEDICAL HISTORY : None. SURGICAL HISTORY : None. ENCOUNTER: Initial ACUITY: 3 days PAIN SCORE: 3/10 LOCATION: Right chest FINDINGS: Right basilar opacity persists now with somewhat horizontally positioned diaphragm suggesting subpulm onic effusion. Left lung remains clear. CONCLUSION: Persistent right basilar opacity infiltrate may be minimally worsened and there is suggestion of subp ulmonic effusion Alexis Moreno MD on June 09, 2016 at 9:44 Board Certified Radiologist. This report was verified electronically.
--- NOTE | 2016-06-09 15:40 | HHI.PR ---
Subjective Remarks Patient wants to go home He stated the cough is getting better no fever Patient is on Azactam and Levaquin were ID He is afebrile overnight Objective Vitals Vital Signs Date Time Temp Pulse Resp B/P Pulse Ox O2 Delivery O2 Flow Rate FiO2 06/09/16 12:00 97.4 76 18 101/63 94 06/09/16 10:06 93 Nasal Cannula 2.00 06/09/16 08:00 97.7 74 18 115/72 94 06/09/16 04:00 98.0 77 18 105/65 95 06/09/16 00:26 98.5 85 18 120/71 96 06/08/16 20:22 80 06/08/16 20:00 97.8 80 16 110/83 94 06/08/16 19:57 18 06/08/16 16:00 97.7 79 16 103/64 95 I/O 06/08/16 06/08/16 06/08/16 06/09/16 06/09/16 06/09/16 07:00 15:00 23:00 07:00 15:00 23:00 Intake Total 240 ml 840 ml 348 ml 364 ml Balance 240 ml 840 ml 348 ml 364 ml Intake Oral 240 ml 840 ml 240 ml 360 ml IV Total 108 ml 4 ml # Voids 2 2 2 2 # Bowel Movements 0 Result Diagram: 06/09/16 0745 06/09/16 0745 Objective Remarks GENERAL: This is a well-nourished, well-developed patient, in no apparent distress. SKIN: No rashes, warm and dry HEAD: Atraumatic. Normocephalic. EYES: Pupils equal round and reactive. Extraocular motions intact. No scleral icterus. ENT: Nose without bleeding, or drainage, Airway patent. NECK: Trachea midline. Supple CARDIOVASCULAR: Regular rate and rhythm without murmurs, gallops, or rubs. RESPIRATORY: Positive rhonchi, with few crackles bilaterally GASTROINTESTINAL: Abdomen soft, non-tender, nondistended. Positive bowel sounds MUSCULOSKELETAL: Extremities without clubbing, cyanosis, or edema. Pedal pulses appreciated NEUROLOGICAL: Awake and alert. Moves all extremity. Normal speech.no focal neurological deficit A/P Problem List: (1) HIV (human immunodeficiency virus infection) ICD Code: Z21 Status: Chronic (2) Pneumonia ICD Code: J18.9 Status: Acute (3) Leukocytosis ICD Code: D72.829 Status: Acute (4) Hyperkalemia ICD Code: E87.5 Status: Acute (5) Hyponatremia ICD Code: E87.1 Status: Acute (6) Chronic renal failure ICD Code: N18.9 Status: Chronic Assessment and Plan 06/09: CBC BMP, in a.m., discussed with the patient extensively wants to go home , explained to him we need to follow culture and continue iv antibiotic per ID recommendation Chest Pain -Mostly due to pneumonia with possible underlying musculoskeletal - initial cardiac enzymes negative - EKG with no ischemic changes noted - - continue pain control HIV + x 10 - 12 years -CD4 count pending -Appreciate ID consultation, recommended HAART unless patient is extremely noncompliant Right middle lobe pneumonia mostly CAP versus atypical, unlikely PCP - continue IV antibiotic per ID - Supplemental oxygen to maintain oxygen saturation greater than 92% - neb treatment as needed - VQ scan with low to intermediate probability for PE - - ff sputum culture Leukocytosis with neutrophilia and monocytosis likely secondary to pneumonia - improving. - CBC monitoring, trending down Hyperkalemia -resolved - Admission potassium 5.7; hemolyzed specimen Hyponatremia -resolved chronic renal insufficiency possibly related to HIV medications - No prior labs are available for comparison - Recheck labs in a.m. and follow trends in renal indices - Avoid nephrotoxins - Renal diet - consult nephrology if needed anemia of chronic disease- will monitor periodically DVT prophylaxis with subq heparin Problem Qualifiers (1) Pneumonia: Qualified Code: J18.1 - Pneumonia of right middle lobe due to infectious organism Radha Alejandra MD Jun 09, 2016 15:40
[2016-06-09 23:54] LABS: CD4/CD8 RATIO 0.5 (0.86-5.00)
[2016-06-10] VITALS: BP 125/66; PULSE 77; RESP 20; TEMP 98.2; O2SAT 95
[2016-06-10 04:00] VITALS: BP 128/81; PULSE 77; RESP 20; TEMP 98.1; O2SAT 96
[2016-06-10] MEDS: HEPARIN SODIUM - SQ 10,000 UNITS/ML VIAL SQ SCH (05:37)
[2016-06-10 08:26] LABS: AUTOMATED NEUTROPHIL # 5.9 TH/MM3 (1.8-7.7); BASOPHIL # 0.1 TH/MM3 (0-0.2); BASOPHIL % 0.8 % (0.0-2.0); EOSINOPHIL % 8.5 % (0.0-4.0); HEMO FLAGS DIFF FINAL; LYMPH % 29.6 % (9.0-44.0); LYMPHOCYTE # 3.4 TH/MM3 (1.0-4.8); MEAN CELL VOLUME 89.1 FL (80.0-100.0); MEAN CORPUSCULAR HEMOGLOBIN 29.9 PG (27.0-34.0); MEAN CORPUSCULAR HGB CONC 33.6 % (32.0-36.0); MONO % 9.7 % (0.0-8.0); NEUT % 51.4 % (16.0-70.0); PLATELET COUNT 446 TH/MM3 (150-450); RED BLOOD COUNT 3.25 MIL/MM3 (4.50-5.90); RED CELL DISTRIBUTION WIDTH 14.5 % (11.6-17.2); WHITE BLOOD COUNT 11.4 TH/MM3 (4.0-11.0)
[2016-06-10] MEDS: ABACAVIR SULFATE 300 MG TAB PO SCH (08:35)
[2016-06-10] MEDS: lamiVUDine SOLN 150 MG/15 ML CUP PO SCH (08:35)
[2016-06-10] MEDS: DOLUTEGRAVIR SODIUM 50 MG TAB PO SCH (08:35)
[2016-06-10] MEDS: ATORVASTATIN 20 MG TAB PO SCH (08:35)
[2016-06-10] MEDS: SODIUM CHLORIDE 0.9% FLUSH 5 ML FLUSH FLUSH SCH (08:36)
[2016-06-10 08:53] LABS: BICARBONATE 22.4 MEQ/L (21.0-32.0); POTASSIUM 3.4 MEQ/L (3.5-5.1)
[2016-06-10] MEDS ORDERED: LEVA500T PO (09:24)
--- NOTE | 2016-06-10 09:28 | HHI.PR ---
Subjective Remarks Doing well wants to be discharged home Discuss with ID this morning when the phone she agreed on discharging him with 10 days of Levaquin He was afebrile overnight I advised him to continue following with [facility] Objective Vitals Vital Signs Date Time Temp Pulse Resp B/P Pulse Ox O2 Delivery O2 Flow Rate FiO2 06/10/16 04:00 98.1 77 20 128/81 96 06/10/16 00:00 98.2 77 20 125/66 95 06/09/16 20:10 73 06/09/16 20:00 97.9 71 16 122/76 96 06/09/16 20:00 97.0 76 20 124/67 96 06/09/16 16:00 98.2 76 18 108/68 95 06/09/16 12:00 97.4 76 18 101/63 94 06/09/16 10:06 93 Nasal Cannula 2.00 I/O 06/09/16 06/09/16 06/09/16 06/10/16 06/10/16 06/10/16 07:00 15:00 23:00 07:00 15:00 23:00 Intake Total 364 ml 720 ml Balance 364 ml 720 ml Intake Oral 360 ml 720 ml IV Total 4 ml # Voids 2 4 3 # Bowel Movements 0 1 Result Diagram: 06/10/1672906/10/1630 Objective Remarks GENERAL: This is a well-nourished, well-developed patient, in no apparent distress. SKIN: No rashes, warm and dry HEAD: Atraumatic. Normocephalic. EYES: Pupils equal round and reactive. Extraocular motions intact. No scleral icterus. ENT: Nose without bleeding, or drainage, Airway patent. NECK: Trachea midline. Supple CARDIOVASCULAR: Regular rate and rhythm without murmurs, gallops, or rubs. RESPIRATORY: Positive rhonchi, with few crackles bilaterally GASTROINTESTINAL: Abdomen soft, non-tender, nondistended. Positive bowel sounds MUSCULOSKELETAL: Extremities without clubbing, cyanosis, or edema. Pedal pulses appreciated NEUROLOGICAL: Awake and alert. Moves all extremity. Normal speech.no focal neurological deficit A/P Problem List: (1) HIV (human immunodeficiency virus infection) ICD Code: Z21 Status: Chronic (2) Pneumonia ICD Code: J18.9 Status: Acute (3) Leukocytosis ICD Code: D72.829 Status: Acute (4) Hyperkalemia ICD Code: E87.5 Status: Acute (5) Hyponatremia ICD Code: E87.1 Status: Acute (6) Chronic renal failure ICD Code: N18.9 Status: Chronic Assessment and Plan 06/09: CBC BMP, in a.m., discussed with the patient extensively wants to go home , explained to him we need to follow culture and continue iv antibiotic per ID recommendation 06/10: WBC continue trending down nicely 11 K today, as well as creatinineD/W ID over the phone this morning, she agree on discharge patient with 10 days of Levaquin and stopping intact A/P: Chest Pain -Mostly due to pneumonia with possible underlying musculoskeletal - initial cardiac enzymes negative - EKG with no ischemic changes noted - - continue pain control HIV + x 10 - 12 years -CD4 count pending -Appreciate ID consultation, recommended HAART unless patient is extremely noncompliant Right middle lobe pneumonia mostly CAP versus atypical, unlikely PCP - continue IV antibiotic per ID - Supplemental oxygen to maintain oxygen saturation greater than 92% - neb treatment as needed - VQ scan with low to intermediate probability for PE - - ff sputum culture Leukocytosis with neutrophilia and monocytosis likely secondary to pneumonia - improving. - CBC monitoring, trending down Hyperkalemia -resolved - Admission potassium 5.7; hemolyzed specimen Hyponatremia -resolved chronic renal insufficiency possibly related to HIV medications - No prior labs are available for comparison - Recheck labs in a.m. and follow trends in renal indices - Avoid nephrotoxins - Renal diet - consult nephrology if needed anemia of chronic disease- will monitor periodically DVT prophylaxis with subq heparin Problem Qualifiers (1) Pneumonia: Qualified Code: J18.1 - Pneumonia of right middle lobe due to infectious organism Radha Alejandra MD Jun 10, 2016 09:28
--- NOTE | 2016-06-10 09:35 | HHI.DS ---
Discharge Summary Admission Date Jun 07, 2016 at 19:34 Discharge Date: Jun 10, 2016 Admitting Diagnosis acute CAP, sepsis, HIV (1) HIV (human immunodeficiency virus infection) ICD Code: Z21 (2) Pneumonia ICD Code: J18.9 (3) Leukocytosis ICD Code: D72.829 (4) Hyperkalemia ICD Code: E87.5 (5) Hyponatremia ICD Code: E87.1 (6) Chronic renal failure ICD Code: N18.9 Procedures None Brief History - From Admission Mr. Munoz is a 60 year-old male with a history of HIV, hypertension, and DVT who presented to the ER on 06/07/16 with complaint of right-sided chest pain associated with nausea. The patient was found to have right middle lobe pneumonia and was admitted. The patient is seen in his hospital room where he is complaining of severe right -sided chest pain associated with nausea and shortness of breath and worsened by cough. Cough is productive with yellow phlegm and patient had chills associated with this but denies fevers. During examination today though, he has a tactile fever noted. Denies vomiting, diarrhea, dysuria, hematuria. Patient reports history of HIV, hypertension, right lower extremity DVT following right lower leg fracture, and kidney failure related to HIV medication. He reports having pneumonia when he was first diagnosed with HIV 10 -12 years ago but does not think it was PCP. Denies history of any HIV-related opportunistic infections. Denies history of diabetes mellitus, myocardial infarction, congestive heart failure, atrial fibrillation, pulmonary embolism, CVA, hepatitis, cirrhosis, seizure disorder, thyroid problems, cancer, or prostate problems. . CBC/BMP: 06/10/16 0730 06/10/16 0730 Significant Findings Laboratory Tests Test 06/07/16 06/07/16 06/07/16 06/07/16 15:10 16:15 20:02 21:40 White Blood Count 21.4 TH/MM3 (4.0-11.0) Red Blood Count 3.75 MIL/MM3 (4.50-5.90) Hemoglobin 11.5 GM/DL (13.0-17.0) Hematocrit 33.1 % (39.0-51.0) Platelet Count 534 TH/MM3 (150-450) Neutrophils (%) (Auto) 74.0 % (16.0-70.0) Monocytes (%) (Auto) 11.5 % (0.0-8.0) Neutrophils # (Auto) 15.8 TH/MM3 (1.8-7.7) Monocytes # (Auto) 2.5 TH/MM3 (0-0.9) Platelet Estimate HIGH (NORMAL) D-Dimer Quantitative (PE/DVT) 2.43 MG/L FEU (0.00-0.50) Sodium Level 132 MEQ/L (136-145) Potassium Level 5.7 MEQ/L 3.4 MEQ/L (3.5-5.1) (3.5-5.1) Blood Urea Nitrogen 21 MG/DL (7-18) Creatinine 2.56 MG/DL (0.60-1.30) Estimat Glomerular Filtration 26 ML/MIN (>89) Rate Random Glucose 110 MG/DL (74-106) Lactate Dehydrogenase 511 U/L (87-241) Creatine Kinase MB LESS THAN 0.5 NG/ML (0.5-3.6) Troponin I LESS THAN 0.02 NG/ML (0.02-0.05) Percent CD4 Cells 24 % (30-61) Absolute CD4 Count 386 (490-1740) T-Pendleton/Suppressor Ratio 0.5 (0.86-5.00) Percent CD8 Cells 51 % (12-42) Blood Gas HCO3 18 mmol/L (22-26) Blood Gas Base Excess -6.1 mmol/L (-2-2) Arterial Blood Partial 29 mmHg (38-42) Pressure CO2 Blood Gas Hemoglobin 9.7 G/DL (12.0-16.0) Test 06/08/16 06/09/16 06/10/16 06:21 07:45 07:30 White Blood Count 16.3 TH/MM3 13.3 TH/MM3 11.4 TH/MM3 (4.0-11.0) (4.0-11.0) (4.0-11.0) Red Blood Count 3.19 MIL/MM3 3.33 MIL/MM3 3.25 MIL/MM3 (4.50-5.90) (4.50-5.90) (4.50-5.90) Hemoglobin 9.6 GM/DL 10.0 GM/DL 9.7 GM/DL (13.0-17.0) (13.0-17.0) (13.0-17.0) Hematocrit 28.9 % 29.8 % 29.0 % (39.0-51.0) (39.0-51.0) (39.0-51.0) Monocytes (%) (Auto) 14.8 % 12.1 % 9.7 % (0.0-8.0) (0.0-8.0) (0.0-8.0) Neutrophils # (Auto) 10.0 TH/MM3 (1.8-7.7) Monocytes # (Auto) 2.4 TH/MM3 1.6 TH/MM3 1.1 TH/MM3 (0-0.9) (0-0.9) (0-0.9) Toxic Vacuolation PRESENT (NONE SEEN) Ovalocytes 1+ (NORMAL) Creatinine 2.18 MG/DL 2.19 MG/DL 2.04 MG/DL (0.60-1.30) (0.60-1.30) (0.60-1.30) Estimat Glomerular Filtration 31 ML/MIN (>89) 31 ML/MIN (>89) 34 ML/MIN (>89) Rate Platelet Count 453 TH/MM3 (150-450) Eosinophils (%) (Auto) 7.7 % (0.0-4.0) 8.5 % (0.0-4.0) Eosinophils # (Auto) 1.0 TH/MM3 1.0 TH/MM3 (0-0.4) (0-0.4) Potassium Level 3.4 MEQ/L (3.5-5.1) PE at Discharge GENERAL: This is a well-nourished, well-developed patient, in no apparent distress. SKIN: No rashes, warm and dry HEAD: Atraumatic. Normocephalic. EYES: Pupils equal round and reactive. Extraocular motions intact. No scleral icterus. ENT: Nose without bleeding, or drainage, Airway patent. NECK: Trachea midline. Supple CARDIOVASCULAR: Regular rate and rhythm without murmurs, gallops, or rubs. RESPIRATORY: Positive rhonchi, with few crackles bilaterally GASTROINTESTINAL: Abdomen soft, non-tender, nondistended. Positive bowel sounds MUSCULOSKELETAL: Extremities without clubbing, cyanosis, or edema. Pedal pulses appreciated NEUROLOGICAL: Awake and alert. Moves all extremity. Normal speech.no focal neurological deficit Hospital Course 60 years old male admitted for Chest Pain he was found to have Right middle lobe pneumonia mostly CAP versus atypical, unlikely PC initial cardiac enzymes negative EKG with no ischemic changes noted continue pain control HIV + x 10 - 12 years CD4 count pending Appreciate ID consultation, recommended HAART unless patient is extremely noncompliant IV antibiotic per ID status post Azactam Supplemental oxygen to maintain oxygen saturation greater than 92% neb treatment as needed VQ scan with low to intermediate probability for PE ff sputum culture Leukocytosis with neutrophilia and monocytosis likely secondary to pneumonia - improving. CBC monitoring, trending down Hyperkalemia resolved Admission potassium 5.7; hemolyzed specimen Hyponatremia resolved chronic renal insufficiency possibly related to HIV medications No prior labs are available for comparison Recheck labs in a.m. and follow trends in renal indices Avoid nephrotoxins Renal diet consult nephrology if needed anemia of chronic disease will monitor periodically DVT prophylaxis with subq heparin I discussed with ID on the day of discharge, she informed me she stopped Azactam and she is okay to discharge patient on 10 days of Levaquin Pt Condition on Discharge: Fair Discharge Disposition: Discharge Home Discharge Time: > 30 minutes Discharge Instructions DIET: Follow Instructions for: Heart Healthy Diet Activities you can perform: Weight Bearing as Krzysztof New Medications: Levofloxacin (Levaquin) 500 Mg Tab 500 MG PO Q48H pna Days 10 TAB Continued Medications: Abacavir (Abacavir) 300 Mg Tab 300 MG PO BID Hazardous agent; use appropriate precautions for handling & disposal. Mgmt Viral Infection #60 Ref 0 TAB Atorvastatin (Atorvastatin) 20 Mg Tab 20 MG PO DAILY Cholesterol Management #30 Ref 0 TAB Dolutegravir (Tivicay) 50 Mg Tab 50 MG PO BID Mgmt Viral Infection #60 Ref 0 TAB Lamivudine (Hbv) (Lamivudine) 100 Mg Tab 100 MG PO DAILY Radha Alejandra MD Jun 10, 2016 09:35
[2016-06-10] MEDS: LEVOFLOXACIN 500 MG TAB PO SCH (10:26)
== END 2016-06-10 10:30 | disposition home or self-care (01) | DRG 871 ==
LOC: NEPC 14:41 → NEDA 19:34 → N04A 22:45
PROVIDERS: ADMIT Hospitalist; ATTEND Hospitalist
DX: A41.9 Sepsis, unspecified organism (principal); J18.9 Pneumonia, unspecified organism; E87.1 Hypo-osmolality and hyponatremia; Z88.0 Allergy status to penicillin; E78.00 Pure hypercholesterolemia, unspecified; Z86.718 Personal history of other venous thrombosis and embolism; E87.5 Hyperkalemia; E78.5 Hyperlipidemia, unspecified; I12.9 Hypertensive chronic kidney disease with stage 1 through stage 4 chronic kidney disease, or unspecified chronic kidney disease; N18.9 Chronic kidney disease, unspecified; Z87.891 Personal history of nicotine dependence; Z21 Asymptomatic human immunodeficiency virus [HIV] infection status; D63.8 Anemia in other chronic diseases classified elsewhere; Z23 Encounter for immunization
CPT/HCPCS: 36600; 71010; 78582; 80048; 82550; 82552; 82805; 83605; 83615; 83735; 84132; 84484; 85025; 85379; 85610; 85730; 86355; 86357; 86359; 86360; 87040; 87070; 87205; 90471; 90472; 90686; 90732; 93005; 96374; 96375; A9540; A9567; G0008; G0009; J1644; J2270; J2405; J3370; J7030; J7050; Q2038

== ENCOUNTER 2016-10-28 10:06 | Emergency (ER) | payer MEDICARE ==
[~2016-10-28 10:06] MED LIST: ABAC300T PO; ATOR20TA15 PO; DOLU1TAB PO; LAMI1TAB6 PO; LEVA500T PO
[2016-10-28 10:09] VITALS: BP 151/87; PULSE 86; RESP 20; TEMP 98.4; O2SAT 99
[2016-10-28] MEDS ORDERED: CAL-TAB4 PO (10:57)
[2016-10-28] MEDS ORDERED: SODIUM CHLORIDE 0.9% FLUSH 10 ML FLUSH IVF PRN (11:15)
[2016-10-28 11:25] VITALS: RESP 20; O2SAT 98
[2016-10-28 11:33] LABS: AUTOMATED NEUTROPHIL # 5.3 TH/MM3 (1.8-7.7); BASOPHIL % 0.4 % (0.0-2.0); EOSINOPHIL # 0.3 TH/MM3 (0-0.4); EOSINOPHIL % 2.5 % (0.0-4.0); HEMATOCRIT 44.5 % (39.0-51.0); HEMO FLAGS DIFF FINAL; LYMPH % 35.4 % (9.0-44.0); LYMPHOCYTE # 3.7 TH/MM3 (1.0-4.8); MEAN CELL VOLUME 97.9 FL (80.0-100.0); MEAN CORPUSCULAR HEMOGLOBIN 33.5 PG (27.0-34.0); MEAN CORPUSCULAR HGB CONC 34.2 % (32.0-36.0); MONO % 11.4 % (0.0-8.0); NEUT % 50.3 % (16.0-70.0); PLATELET COUNT 302 TH/MM3 (150-450); RED BLOOD COUNT 4.55 MIL/MM3 (4.50-5.90); RED CELL DISTRIBUTION WIDTH 15.9 % (11.6-17.2); WHITE BLOOD COUNT 10.5 TH/MM3 (4.0-11.0)
[2016-10-28 11:37] LABS: APTT (PATIENT) 25.1 SEC (24.3-30.1); INTERNATIONAL NORMALIZED RATIO 0.9 RATIO; PROTHROMBIN TIME - PATIENT 10.1 SEC (9.8-11.6)
--- NOTE | 2016-10-28 11:53 | EKG ---
Date Performed: 10/28/2016 Time Performed: 10:54:35 PTAGE: 61 years EKG: Sinus rhythm NORMAL ECG PREVIOUS TRACING : 06/07/2016 14.57 No change from previous tracing noted. DOCTOR: Trip Sterling Interpretating Date/Time 10/28/2016 11:51:31
--- NOTE | 2016-10-28 11:58 | RADRPT ---
EXAM DATE/TIME: 10/28/2016 11:14 [facility] COMPARISON: CHEST SINGLE AP, June 09, 2016, 9:31. INDICATIONS : Chest tightness with shortness of breath. MEDICAL HISTORY : SURGICAL HISTORY : ENCOUNTER: Initial ACUITY: 1 day PAIN SCORE: 8/10 LOCATION: Bilateral chest FINDINGS: The lungs are clear without infiltrate, nodule, or mass. There is no appreciable pleural effusion fo r technique. Heart and mediastinum are unremarkable. CONCLUSION: No acute cardiopulmonary disease. Nikolay Corbett MD on October 28, 2016 at 11:56 Board Certified Radiologist. This report was verified electronically.
--- NOTE | 2016-10-28 12:16 | PD ---
HPI Chief Complaint: Cardiac Complaint Time Seen by Provider: 11:00 Travel History International Travel<30 days: No Contact w/Intl Traveler<30days: No Traveled to known affect area: No History of Present Illness HPI Patient is a 61-year-old male presenting to emergency department for evaluation of chest pressure. Pressure has been ongoing for 1-2 weeks, he states it wakes him at times and feels heavy on his chest. It is accompanied by diaphoresis and dizziness but those symptoms aren't consistent. He denies any shortness of breath, the pain does radiate to his left arm but reports a history of a shoulder injury so is unsure if that's related. He denies any abdominal pain, nausea, vomiting, fever, chills. Patient's past medical history significant for stage III chronic kidney disease, HIV, PVD. He is compliant with antivirals. He has no history of cardiac disease, he does not know his family history. He does smoke cigars but denies any illicit drug use. He was sent by his primary doctor for evaluation. PFSH Past Medical History Anxiety: Yes Depression: Yes Heart Rhythm Problems: No Cancer: No Cardiovascular Problems: Yes (peripheral vascular disease) High Cholesterol: Yes Chemotherapy: No Congestive Heart Failure: No COPD: No Cerebrovascular Accident: No Diminished Hearing: No Deep Vein Thrombosis: Yes Endocrine: No GERD: Yes Genitourinary: No Headaches: Yes Hiatal Hernia: No Hypertension: Yes Immune Disorder: Yes (hiv) Kidney Stones: No Musculoskeletal: No Psychiatric: Yes Reproductive: No Migraines: No Radiation Therapy: No Renal Failure: Yes (stage III chronic kidney disease) Sleep Apnea: No Ulcer: No Tetanus Vaccination: > 5 Years Influenza Vaccination: Yes Past Surgical History Other Surgery: Yes (L CARPEL TUNNEL RELEASE ) Social History Alcohol Use: No Tobacco Use: Yes (cigars) Substance Use: No Allergies-Medications (Allergen,Severity, Reaction): Coded Allergies: Penicillin (Verified Allergy, Severe, 10/28/16) Reported Meds & Prescriptions Reported Meds & Active Scripts Active Reported Randal-Citrate Plus Vitamin D (Calcium Citrate-Vitamin D) 250-100 Mg-Unit Tab 1 Tab PO DAILY Atorvastatin (Atorvastatin Calcium) 20 Mg Tab 20 Mg PO DAILY Lamivudine (Lamivudine (Hbv)) 100 Mg Tab 100 Mg PO DAILY Abacavir (Abacavir Sulfate) 300 Mg Tab 300 Mg PO BID Hazardous agent; use appropriate precautions for handling & disposal. Tivicay (Dolutegravir Sodium) 50 Mg Tab 50 Mg PO BID Review of Systems Except as stated in HPI: all other systems reviewed are Neg Eyes: No: Blurred Vision HENT: Positive: Headaches Cardiovascular: Positive: Chest Pain or Discomfort, Diaphoresis, No: Palpitations, Dyspnea on exertion Respiratory: No: Shortness of Breath Gastrointestinal: No: Nausea, Vomiting, Abdominal Pain Musculoskeletal: Positive: Myalgias (left arm) Neurologic: Positive: Dizziness Physical Exam Narrative GENERAL: Well developed, well-nourished, alert elderly gentleman. Resting comfortably in no acute distress SKIN: Focused skin assessment warm/dry. HEAD: Atraumatic. Normocephalic. EYES: Pupils equal and round. No scleral icterus. No injection or drainage. ENT: No nasal bleeding or discharge. Mucous membranes pink and moist. NECK: Trachea midline. No JVD. CARDIOVASCULAR: Regular rate and rhythm. No murmur appreciated. RESPIRATORY: No accessory muscle use. Clear to auscultation. Breath sounds equal bilaterally. GASTROINTESTINAL: Abdomen soft, non-tender, nondistended. Hepatic and splenic margins not palpable. MUSCULOSKELETAL: No obvious deformities. No clubbing. No cyanosis. No edema. NEUROLOGICAL: Awake and alert. No obvious cranial nerve deficits. Motor grossly within normal limits. Normal speech. PSYCHIATRIC: Appropriate mood and affect; insight and judgment normal. Data Data Last Documented VS Vital Signs Date Time Temp Pulse Resp B/P Pulse Ox O2 Delivery O2 Flow Rate FiO2 10/28/16 16:00 78 20 137/87 98 Room Air 10/28/16 10:09 98.4 Orders Electrocardiogram (10/28/16 11:02) Ckmb (Isoenzyme) Profile (10/28/16 11:02) Complete Blood Count With Diff (10/28/16 11:02) Comprehensive Metabolic Panel (10/28/16 11:02) Magnesium (Mg) (10/28/16 11:02) Prothrombin Time / Inr (Pt) (10/28/16 11:02) Act Partial Throm Time (Ptt) (10/28/16 11:02) Troponin I (10/28/16 11:02) Lipase (10/28/16 11:02) Chest, Single Ap (10/28/16 11:02) Ecg Monitoring (10/28/16 11:02) Bilateral Bp Monitoring (10/28/16 11:02) Iv Access Insert/Monitor (10/28/16 11:02) Oximetry (10/28/16 11:02) Oxygen Administration (10/28/16 11:02) Sodium Chloride 0.9% Flush (Ns Flush) (10/28/16 11:15) CKMB (10/28/16 11:15) CKMB% (10/28/16 11:15) Troponin I (10/28/16 14:16) Ckmb (Isoenzyme) Profile (10/28/16 14:16) Electrocardiogram (10/28/16 ) Labs Laboratory Tests Test 10/28/16 10/28/16 11:15 14:32 White Blood Count 10.5 TH/MM3 Red Blood Count 4.55 MIL/MM3 Hemoglobin 15.2 GM/DL Hematocrit 44.5 % Mean Corpuscular Volume 97.9 FL Mean Corpuscular Hemoglobin 33.5 PG Mean Corpuscular Hemoglobin 34.2 % Concent Red Cell Distribution Width 15.9 % Platelet Count 302 TH/MM3 Mean Platelet Volume 9.1 FL Neutrophils (%) (Auto) 50.3 % Lymphocytes (%) (Auto) 35.4 % Monocytes (%) (Auto) 11.4 % Eosinophils (%) (Auto) 2.5 % Basophils (%) (Auto) 0.4 % Neutrophils # (Auto) 5.3 TH/MM3 Lymphocytes # (Auto) 3.7 TH/MM3 Monocytes # (Auto) 1.2 TH/MM3 Eosinophils # (Auto) 0.3 TH/MM3 Basophils # (Auto) 0.0 TH/MM3 CBC Comment DIFF FINAL Differential Comment Prothrombin Time 10.1 SEC Prothromb Time International 0.9 RATIO Ratio Activated Partial 25.1 SEC Thromboplast Time Sodium Level 139 MEQ/L Potassium Level 4.2 MEQ/L Chloride Level 111 MEQ/L Carbon Dioxide Level 19.9 MEQ/L Anion Gap 8 MEQ/L Blood Urea Nitrogen 18 MG/DL Creatinine 1.59 MG/DL Estimat Glomerular Filtration 45 ML/MIN Rate Random Glucose 66 MG/DL Calcium Level 9.2 MG/DL Magnesium Level 2.2 MG/DL Total Bilirubin 0.3 MG/DL Aspartate Amino Transf 32 U/L (AST/SGOT) Alanine Aminotransferase 25 U/L (ALT/SGPT) Alkaline Phosphatase 70 U/L Total Creatine Kinase 103 U/L 68 U/L Creatine Kinase MB 2.9 NG/ML Troponin I LESS THAN 0.02 LESS THAN 0.02 NG/ML NG/ML Total Protein 8.0 GM/DL Albumin 3.7 GM/DL Lipase 183 U/L MDM Medical Decision Making Medical Screen Exam Complete: Yes Emergency Medical Condition: Yes Interpretation(s) Last Impressions Chest X-Ray 10/28/16 1102 Signed Impressions: Service Date/Time: October 11:14 - CONCLUSION: No acute cardiopulmonary disease. Nikolay Corbett MD Laboratory Tests Test 10/28/16 11:15 White Blood Count 10.5 TH/MM3 Red Blood Count 4.55 MIL/MM3 Hemoglobin 15.2 GM/DL Hematocrit 44.5 % Mean Corpuscular Volume 97.9 FL Mean Corpuscular Hemoglobin 33.5 PG Mean Corpuscular Hemoglobin 34.2 % Concent Red Cell Distribution Width 15.9 % Platelet Count 302 TH/MM3 Mean Platelet Volume 9.1 FL Neutrophils (%) (Auto) 50.3 % Lymphocytes (%) (Auto) 35.4 % Monocytes (%) (Auto) 11.4 % Eosinophils (%) (Auto) 2.5 % Basophils (%) (Auto) 0.4 % Neutrophils # (Auto) 5.3 TH/MM3 Lymphocytes # (Auto) 3.7 TH/MM3 Monocytes # (Auto) 1.2 TH/MM3 Eosinophils # (Auto) 0.3 TH/MM3 Basophils # (Auto) 0.0 TH/MM3 CBC Comment DIFF FINAL Differential Comment Prothrombin Time 10.1 SEC Prothromb Time International 0.9 RATIO Ratio Activated Partial 25.1 SEC Thromboplast Time Sodium Level 139 MEQ/L Potassium Level 4.2 MEQ/L Chloride Level 111 MEQ/L Carbon Dioxide Level 19.9 MEQ/L Anion Gap 8 MEQ/L Blood Urea Nitrogen 18 MG/DL Creatinine 1.59 MG/DL Estimat Glomerular Filtration 45 ML/MIN Rate Random Glucose 66 MG/DL Calcium Level 9.2 MG/DL Magnesium Level 2.2 MG/DL Total Bilirubin 0.3 MG/DL Aspartate Amino Transf 32 U/L (AST/SGOT) Alanine Aminotransferase 25 U/L (ALT/SGPT) Alkaline Phosphatase 70 U/L Total Creatine Kinase 103 U/L Creatine Kinase MB 2.9 NG/ML Troponin I LESS THAN 0.02 NG/ML Total Protein 8.0 GM/DL Albumin 3.7 GM/DL Lipase 183 U/L Vital Signs Date Time Temp Pulse Resp B/P Pulse Ox O2 Delivery O2 Flow Rate FiO2 10/28/16 11:25 20 98 Room Air 10/28/16 10:09 98.4 86 20 151/87 99 Room Air Differential Diagnosis ACS versus unstable angina versus indigestion versus electrolyte abnormality versus pneumonia versus pleurisy versus other Narrative Course Patient is a 61-year-old male that presented to the emergency room evaluation of chest pressure, he was sent by his primary care provider for evaluation. Patient's vital signs are stable, labs and imaging were ordered and pending. Chest x-ray shows no acute disease Initial EKG shows sinus rhythm with a rate of 75 CBC is unremarkable Chemistry with a creatinine 1.59 Lipase is unremarkable Initial set of cardiac enzymes are negative Coags are unremarkable Patient was informed that we would like to place him in the chest pain center to trend his enzymes and for possible stress test. He declined admission stating he wanted to go home. Will obtain a second troponin and EKG now. Second set of cardiac enzymes are negative, second EKG shows sinus rhythm. Patient continues to decline admission to the chest pain center, stating he will take his chances. Patient Severo Munoz has decided to leave the hospital against medical advice. This patient has the capacity to refuse care and understands the risks of leaving, including permanent disability and/or , and has had an opportunity to ask questions about his condition. The patient has been informed that he may return for care at any time, and follow up has been arranged/ advised. Diagnosis Primary Impression: Left against medical advice Disposition: 07 AGAINST MEDICAL ADVICE Cris Vanegas Oct 28, 2016 12:15
[2016-10-28 13:00] VITALS: BP 126/80; PULSE 74; RESP 20; O2SAT 99
[2016-10-28 13:17] LABS: BLOOD UREA NITROGEN 18 MG/DL (7-18); GLOMERULAR FILTRATION RATE 45 ML/MIN (>89); MAGNESIUM 2.2 MG/DL (1.5-2.5)
[2016-10-28 13:18] LABS: ALKALINE PHOSPHATASE 70 U/L (45-117); ALT (GPT) 25 U/L (12-78); ANION GAP 8 MEQ/L (5-15); AST (GOT) 32 U/L (15-37); BICARBONATE 19.9 MEQ/L (21.0-32.0); CHLORIDE 111 MEQ/L (98-107); POTASSIUM 4.2 MEQ/L (3.5-5.1); SODIUM (NA) 139 MEQ/L (136-145); TOTAL BILIRUBIN ADULT 0.3 MG/DL (0.2-1.0)
[2016-10-28 13:19] LABS: CREATINE KINASE 103 U/L (39-308)
[2016-10-28 13:41] LABS: CKMB 2.9 NG/ML (0.5-3.6)
[2016-10-28 15:37] LABS: CREATINE KINASE 68 U/L (39-308)
[2016-10-28 16:00] VITALS: BP 137/87; PULSE 78; RESP 20; O2SAT 98
--- NOTE | 2016-10-30 11:10 | EKG ---
Date Performed: 10/28/2016 Time Performed: 14:22:59 PTAGE: 61 years EKG: Sinus rhythm NORMAL ECG PREVIOUS TRACING : 10/28/2016 10.54 DOCTOR: Tato Reddy Interpretating Date/Time 10/30/2016 11:00:02
== END 2016-10-28 16:49 | disposition left against medical advice (07) ==
LOC: NEPC 10:06
DX: R07.89 Other chest pain (principal); R42 Dizziness and giddiness; I12.9 Hypertensive chronic kidney disease with stage 1 through stage 4 chronic kidney disease, or unspecified chronic kidney disease; N18.3 Chronic kidney disease, stage 3 (moderate); I73.9 Peripheral vascular disease, unspecified; E78.00 Pure hypercholesterolemia, unspecified; K21.9 Gastro-esophageal reflux disease without esophagitis; Z21 Asymptomatic human immunodeficiency virus [HIV] infection status; Z86.718 Personal history of other venous thrombosis and embolism
CPT/HCPCS: 71010; 80053; 82550; 82552; 83690; 83735; 84484; 85025; 85610; 85730; 93005; 99285